=== PATIENT | female | born 1990 | race African-American/Black ===

== ENCOUNTER 2017-08-10 12:26 | Emergency (ER) | payer OTHER, MEDICAID ==
[~2017-08-10] VITALS: Ht 160 cm; Wt 50.8 kg
[~2017-08-10 12:26] MED LIST: DEPAKOTE; IBUPROFEN; MEDR150D9
[2017-08-10 13:04] VITALS: BP 121/70
== END 2017-08-10 14:41 | disposition home or self-care (01) ==
LOC: ER 14:38
DX: B34.9 Viral infection, unspecified (principal)
CPT/HCPCS: 99282